=== PATIENT | female | born 1995 | race Caucasian/White ===

== ENCOUNTER 2017-10-16 23:14 | Emergency (ER) | payer MEDICAID ==
[2017-10-16] MEDS ORDERED: Sulfamethoxazole/Trimethoprim 800-160 MG Tab PO ONE (23:57)
--- NOTE | 2017-10-17 00:36 | ER ---
DATE SEEN: 10/16/2017 CHIEF COMPLAINT: Pain in leg. HISTORY OF PRESENT ILLNESS: This is a 22-year-old female with leg pain of left started 2 days ago, moderate to severe associated with swelling and redness along with pimple that popped. REVIEW OF SYSTEMS: No fever or chills. Has some nausea. PAST MEDICAL HISTORY: Unremarkable. ALLERGIES: Ibuprofen. PHYSICAL EXAMINATION: VITAL SIGNS: She is afebrile. Her blood pressure 139/93, pulse 102. EXTREMITIES: Left leg revealed redness circumferential in the distal leg. This appears on the lateral aspect that is firm, but not fluctuant. It is warm and tender to palpation. Peripheral pulses are present. LABORATORY DATA: Lab showed a CRP of 3.7, but the rest of the labs including a CBC and D-dimer were normal. IMPRESSION: Cellulitis, purulent. PLAN: Bactrim DS 1 tablet b.i.d., ice, elevation, ibuprofen or Tylenol for pain rather and follow up in the office in 2 days. Return with any systemic symptoms or any worsening pain. TIME SEEN: 2350 hours. /[id number] MERCEDES/MINAL
== END 2017-10-17 00:05 | disposition home or self-care (01) ==
LOC: FB.ED 23:14
DX: L03.116 Cellulitis of left lower limb (principal)
CPT/HCPCS: 36415; 82550; 85025; 85379; 86140; 99283; A9270-GY

== ENCOUNTER 2018-01-02 13:03 | Emergency (ER) | payer MEDICAID ==
[2018-01-02] MEDS ORDERED: Iopamidol 755 Mg/ML 75 ML Bottle IV ONE (14:52)
[2018-01-02] MEDS ORDERED: Diatrizoate Meglumine/Diatrizoate Sodium 37% 30 ML Bottle PO SCH (15:00)
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
== END 2018-01-02 17:03 | disposition home or self-care (01) ==
LOC: FB.ED 13:03
DX: S40.022A Contusion of left upper arm, initial encounter (principal); G43.909 Migraine, unspecified, not intractable, without status migrainosus; K52.9 Noninfective gastroenteritis and colitis, unspecified; K29.70 Gastritis, unspecified, without bleeding; R31.29 Other microscopic hematuria; Y04.8XXA Assault by other bodily force, initial encounter
CPT/HCPCS: 36415; 74177; 80053; 81001; 83605; 85025; 99284; Q9963; Q9967